=== PATIENT | female | born 1935 | race Caucasian/White ===

== ENCOUNTER 2018-08-14 09:29 | Emergency (ER) | payer OTHER ==
--- NOTE | 2018-08-14 09:47 | PDOC ---
History of Present Illness - History of Present Illness Initial Comments: 08/14/18 09:45 83 yo F with h/o dysphagia, tracheostomy, dementia BIBEMS from [facility] s/p fall from bed. Patient unable to communicate verbally, but communicative through lip movements, absent speech. Patient reports fall from bed this AM. Reports rolling out of bed (2 ft) and landing on right knee and elbow. Denies head/neck/ back trauma, LOC. Patient on ground approximately 5-15 minutes before staff found patient on ground. Patient bedbound, non ambulatory at baseline. Patient on Heparin Subcutaneous 5000 mg Q12 hours ppx. Patient denies PUENTES, vision change, palpitations, cough, wheezing, orthopena, PND , leg swelling/pain, N/V, F,C, CP, SOB, urinary complaints, hematuria, BPR, abdominal pain, diarrhea, constipation, lightheadedness, weakness, sensory changes. PMHx: as noted above ROS: as noted SHx: Denies Etoh, IVDA, tobacco use Allergies: Oxaprozin, Nitrofurantoin, Butalbital PMD: Dr. Carpenter <Orville Garcia - Last Filed: 08/14/18 12:07> <Lucy Garcia - Last Filed: 08/15/18 22:07> - General Chief Complaint: Injury Stated Complaint: FALL Time Seen by Provider: 08/14/18 09:45 Past History <Orville Garcia - Last Filed: 08/14/18 12:07> <Lucy Garcia - Last Filed: 08/15/18 22:07> - Past Medical History Allergies/Adverse Reactions: Allergies Allergy/AdvReac Type Severity Reaction Status Date / Time butalbital Allergy Verified 08/14/18 09:42 nitrofurantoin Allergy Verified 08/14/18 09:42 oxaprozin Allergy Verified 08/14/18 09:42 Review of Systems - Review of Systems Comments:: 08/14/18 09:46 GENERAL/CONSTITUTIONAL: No fever or chills. No weakness. HEAD, EYES, EARS, NOSE AND THROAT: No change in vision. No ear pain or discharge. No sore throat. CARDIOVASCULAR: No chest pain or shortness of breath RESPIRATORY: No cough, wheezing, or hemoptysis. GASTROINTESTINAL: No nausea, vomiting, diarrhea or constipation. GENITOURINARY: No dysuria, frequency, or change in urination. MUSCULOSKELETAL: No joint or muscle swelling or pain. No neck or back pain. SKIN: No rash NEUROLOGIC: No headache, vertigo, loss of consciousness, or change in strength/ sensation. ENDOCRINE: No increased thirst. No abnormal weight change HEMATOLOGIC/LYMPHATIC: No anemia, easy bleeding, or history of blood clots. ALLERGIC/IMMUNOLOGIC: No hives or skin allergy. <Mingo Garciason - Last Filed: 08/14/18 12:07> *Physical Exam - Physical Exam Comments: 08/14/18 09:46 GENERAL: Awake, alert, and fully oriented, in no acute distress, patient non verbal, but communicative through lip movements. Able to follow commands. HEAD: No signs of trauma, normocephalic, atraumatic EYES: PERRLA, EOMI, sclera anicteric, conjunctiva clear ENT: + Trach in place. Auricles normal inspection, hearing grossly normal, nares patent, oropharynx clear without exudates. Moist mucosa NECK: Normal ROM, supple, no lymphadenopathy, JVD, or masses LUNGS: No distress, speaks full sentences, clear to auscultation bilaterally HEART: Regular rate and rhythm, normal S1 and S2, no murmurs, rubs or gallops, peripheral pulses normal and equal bilaterally. ABDOMEN: Soft, nontender, normoactive bowel sounds. No guarding, no rebound. No masses EXTREMITIES : Normal inspection, Normal range of motion, no edema. No clubbing or cyanosis. NEUROLOGICAL: Cranial nerves II through XII grossly intact. No focal sensorimotor deficits SKIN: + ecchymosis, erythema, right knee and right elbow. Warm, Dry, normal turgor, no rashes or lesions noted <Orville Garcia - Last Filed: 08/14/18 12:07> - Vital Signs Last Vital Signs Temp Pulse Resp BP Pulse Ox 97.8 F 100 H 20 130/97 100 08/14/18 13:02 08/14/18 13:02 08/14/18 13:02 08/14/18 13:02 08/14/18 13:02 <Lucy Garcia - Last Filed: 08/15/18 22:07> Medical Decision Making - Medical Decision Making 08/14/18 10:03 83 yo F with h/o dysphagia, tracheostomy, siezure disorder, dementia BIBEMS from [facility] s/p fall from bed. Vitals wnl, AF, A&Ox3. Physical exam unremarkable. No evidence closed head injury, or c-spine ttp. Neg evidence basilar skull fracture. ED Course: CTH, C-SPINE 08/14/18 12:07 CTH: No acute change C-SPINE CT: No acute change 08/14/18 12:08 Pt. stable for d/c back to facility. <Orville Garcia - Last Filed: 08/14/18 12:07> *DC/Admit/Observation/Transfer - Discharge Dispostion Decision to Admit order: No <Orville Garcia - Last Filed: 08/14/18 12:07> <Lucy Garcia - Last Filed: 08/15/18 22:07> Diagnosis at time of Disposition: Fall from bed, initial encounter - Discharge Dispostion Disposition: [facility] Condition at time of disposition: Stable - Referrals Referrals: Amado Lopez MD [Primary Care Provider] - - Patient Instructions Printed Discharge Instructions: How to Prevent Falls Additional Instructions: Please return to the emergency department with any new or worsening symptoms or concerns. Please follow up with your primary care physician within 72 hours.
[2018-08-14 09:56] VITALS: BMI 19.2
--- NOTE | 2018-08-14 12:08 | PDOC ---
Documentation entered by Marleny Chávez SCRIBE, acting as scribe for Lucy Garcia MD. Lucy Garcia MD: This documentation has been prepared by the scribe, Marleny Chávez SCRIBE, under my direction and personally reviewed by me in its entirety. I confirm that the documentation accurately reflects all work, treatment, procedures, and medical decision making performed by me. Attending Attestation - Resident Resident Name: Mingo Garciason - ED Attending Attestation I have performed the following: I have examined & evaluated the patient, The case was reviewed & discussed with the resident, I agree w/resident's findings & plan, Exceptions are as noted - HPI HPI: 08/14/18 10:22 The patient is an 83-year-old female from [facility], with a past medical history of dysphagia, tracheostomy, and dementia, prior craniotomy who presents to the ED via EMS s/p fall from bed this morning. The patient is unable to communicate verbally, but is able to communicate through lip movements. Patient rolled out of bed, landing on her RT knee and elbow. Denies any head or neck trauma or loss of consciousness. She was on the ground for approximately 5-15 minutes before the [facility] staff found her. on heparin ppx. hx somewhat limited due to trach in place, and mouth communication/lip reading. Allergies: Oxaprozin, Nitrofurantoin, Butalbital Social History: Denies any tobacco, alcohol, or drug use. PCP: Dr. Lopez 08/14/18 12:08 - Physicial Exam PE: 08/14/18 10:24 NAD, trach in place, hoarse voice (chronic) EOMI, PERRL, MMM, nl conjunctiva, anicteric; neck supple. lungs clear, RRR, abdomen soft nontender. Back nontender. ERAZO x4, contractures. No peripheral edema. normal color for ethnicity , WWP. no skin discoloration 08/14/18 12:06 - Medical Decision Making 08/14/18 12:07 hpi as documented VS reviewed wnl, no fever, no systemic findings, no complaints and at baseline status neuro intact. Trauma ddx: ICH, SDH/ EDH, C spine injury/strain CT read negative for bleed or injuries, moderate encephalomalacia and status post right-sided craniotomy with aneurysmal clips seen CT C-spine negative for acute fracture dislocation/subluxation, degenerative changes multilevel seen. neg imaging, eager for discharge CT unremarkable, neuro intact at baseline and no complaints on heparin ppx, only return precautions for head injury/worsening sx for bleed including lethargy/AMS , vomiting, focal weakness/paresthesias or other concerning sx DC back to , f/u Dr Lopez, stable for transfer back to facility 08/14/18 12:09 08/14/18 15:23
[2018-08-14 12:41] VITALS: TEMP 97.8
[2018-08-14 13:06] VITALS: BP 130/97; PULSE 100
--- NOTE | 2018-08-15 00:15 | EKG ---
Test Reason : Blood Pressure : / mmHG Vent. Rate : 098 BPM Atrial Rate : 098 BPM P-R Int : 118 ms QRS Dur : 050 ms QT Int : 334 ms P-R-T Axes : 037 008 039 degrees QTc Int : 426 ms POOR DATA QUALITY, INTERPRETATION MAY BE ADVERSELY AFFECTED NORMAL SINUS RHYTHM BORDERLINE ECG NO PREVIOUS ECGS AVAILABLE Confirmed by MD Jovanni, Eleazar ([id number]) on 08/15/2018 12:15:17 AM Referred By: Confirmed By:Eleazar Baig MD
== END 2018-08-14 13:08 ==
LOC: JER 09:29
DX: Z04.3 Encounter for examination and observation following other accident (principal); W06.XXXA Fall from bed, initial encounter; Y93.89 Activity, other specified; Y92.122 Bedroom in nursing home as the place of occurrence of the external cause; F03.90 Unspecified dementia, unspecified severity, without behavioral disturbance, psychotic disturbance, mood disturbance, and anxiety; Z93.0 Tracheostomy status; G40.909 Epilepsy, unspecified, not intractable, without status epilepticus
CPT/HCPCS: 70450-TC; 72125-TC; 93005; 93010; 99282-25